=== PATIENT | female | born 1945 | race Caucasian/White ===

== ENCOUNTER 2017-10-27 11:50 | Emergency (ER) | payer OTHER ==
--- NOTE | 2017-10-27 12:00 | ED.PDOC ---
General ED Provider: Dr. CHANTELL LEONE Chief Complaint: Back Pain Stated Complaint: Onset of Rt Lower back/Flank pain yesterday upon awakening. She initially stated the pain progressively worsened from a slight twinge to being severe in nature. No associate nausea or vomiting. adds that she sits around in the house crying with back pain. Upon further questioning pain actually has been worsening for several days. Pain is especially painful when standing up and ambulatory-alleviated with rest. Admits to burning with urination. Past hx of kidney stone which was surgically treated with open ureterolithotomy. Time Seen by Physician: 11:55 Mode of Arrival: Walk-In Information Source: Patient, Family Exam Limitations: No limitations Primary Care Provider: CHANTELL CARRASCO Nursing and Triage Documentation Reviewed and Agree: Yes Reviewed sepsis parameters & appropriate labs ordered?: Yes System Inflammatory Response Syndrome: Not Applicable Sepsis Protocol: For patient's 13 years and over: Temp is 96.8 and below OR 101 and greater Pulse >90 BPM Resp >20/minute Acutely Altered Mental Status Are patient's symptoms suggestive of a new infection, such as: -Pneumonia -Skin, Soft Tissue -Endocarditis -UTI -Bone, Joint Infection -Implantable Device -Acute Abdominal Infection -Wound Infection -Meningitis -Blood Stream Catheter Infection -Unknown System Inflammatory Response Syndrome: Not Applicable Musculoskeletal Complaint Exam - Back Pain Complaint/Exam Mechanism of Injury: Reports: No known trauma Onset/Duration: 10/26/2017 upon awakening from sleep in the AM Symptoms Are: Worse Timing: Constant Episodes Lasting: Hours Initial Severity: Mild Current Severity: Moderate Location: Reports: Discrete, Radiating Character: Reports: Sharp, Aching, Throbbing, Burning Aggravating: Reports: Movements Alleviating: Reports: Rest Associated Signs and Symptoms: Reports: Weakness, Flank pain, Pain with weight bearing Related History: Reports: Similar episode TAD Risk Factors: Reports: None AAA Risk Factors: Reports: None Focal Tenderness: Yes Paraspinal Muscle Tenderness: Yes Paraspinal Muscle Spasm: Yes Scoliosis: No Lordosis: No Kyphosis: No Focal Weakness: Present: None Focal Sensory Loss: Present: None Review of Systems - Review Of Systems Constitutional: Reports: No symptoms Eyes: Reports: No symptoms Ears, Nose, Mouth, Throat: Reports: No symptoms Respiratory: Reports: No symptoms Cardiac: Reports: No symptoms GI: Reports: No symptoms : Reports: Burning, Dysuria Musculoskeletal: Reports: Back pain Skin: Reports: No symptoms Neurological: Reports: No symptoms Endocrine: Reports: No symptoms Hematologic/Lymphatic: Reports: No symptoms All Other Systems: Reviewed and Negative Past Medical History - Past Medical History Previously Healthy: Yes Endocrine: Reports: None Cardiovascular: Reports: None Respiratory: Reports: None Hematological: Reports: None Gastrointestinal: Reports: None Genitourinary: Reports: None Neuro/Psych: Reports: None Musculoskeletal: Reports: None Cancer: Reports: None - Surgical History General Surgical History: Reports: Unknown (Ureteolithotomy) - Family History Family History: Reports: None - Social History Smoking Status: Never smoker Hx Substance Use: No Physical Exam - Physical Exam Appearance: Well-appearing Ill-appearing: Moderate Pain Distress: Moderate Eyes: YOVANNY, EOMI, Conjunctiva clear ENT: Ears normal, Nose normal, Oropharynx normal Neck: Supple Respiratory: Airway patent, Breath sounds clear Cardiovascular: RRR, Pulses normal, No rub, No murmur GI/: Soft, Tender (RLQ and Rt Flank) Musculoskeletal: Normal strength, ROM intact (Reduced forward spinal flexion inhibited by degree of pain.), Limited ROM Skin: Warm Neurological: Sensation intact Psychiatric: Affect appropriate, Mood appropriate Critical Care Note - Critical Care Note Total Time (mins): 0 Course - Course Hematology/Chemistry: 10/27/17 12:25 10/27/17 12:25 Orders, Labs, Meds: Lab Review 10/27/17 10/27/17 10/27/17 12:25 12:25 12:25 WBC 6.19 RBC 4.06 L Hgb 13.3 Hct 38.8 MCV 95.6 MCH 32.8 H MCHC 34.3 RDW Coeff of [place] 14.3 Plt Count 286 Immature Gran % (Auto) 0.5 Neut % (Auto) 68.6 Lymph % (Auto) 18.7 [place] % (Auto) 10.8 H Eos % (Auto) 1.1 Baso % (Auto) 0.3 Immature Gran # (Auto) 0.0 Neut # 4.2 Lymph # 1.2 [place] # 0.7 Eos # 0.1 Baso # 0.0 Sodium 143 Potassium 3.7 Chloride 104 Carbon Dioxide 29 Anion Gap 13.7 BUN 24 H Creatinine 0.82 Estimated GFR (MDRD) 69.00 BUN/Creatinine Ratio 29.26 Glucose 100 Calcium 9.6 Total Bilirubin < 0.3 AST 37 ALT 39 Alkaline Phosphatase 89 Total Protein 7.0 Albumin 3.5 Globulin 3.5 Albumin/Globulin Ratio 1.00 Urine Color Yellow Urine Clarity Clear Urine pH 5.0 Ur Specific [place] 1.015 Urine Protein Negative Urine Glucose (UA) Negative Urine Ketones Negative Urine Blood Negative Urine Nitrite Negative Urine Bilirubin Negative Urine Urobilinogen 0.2 Ur Leukocyte Esterase Negative Orders Category Date Time Status NPO REMINDER: IMAGING ONCE CARE 10/27/17 15:07 Active CBC W/ AUTO DIFF Stat LAB 10/27/17 12:25 Completed CMP [COMPREHENSIVE METABOLIC PANEL] Stat LAB 10/27/17 12:25 Completed URINALYSIS C & S IF INDICATED Stat LAB 10/27/17 12:25 Completed Hydromorphone HCl [Dilaudid 1 mg/ml Syringe] MEDS 10/27/17 12:13 Discontinued 0.5 mg IVP ONCE STA Ondansetron HCl/Pf [Zofran 4 mg/2 ml] MEDS 10/27/17 12:11 Active 4 mg IVP Q6H PRN Sodium Chloride 0.9% [Sodium Chloride] 1,000 ml MEDS 10/27/17 12:[address] ABDOMEN/PELVIS WO CONTRAST Stat RADS 10/27/17 12:[address] LUMBAR SPINE W/CONTRAST Stat RADS 10/27/17 15:[address] THORACIC SPINE W/CONTRAST Stat RADS 10/27/17 15:03 Completed Medications Generic Name Dose Route Start Last Admin Trade Name Freq PRN Reason Stop Dose Admin Ondansetron HCl 4 mg 10/27/17 12:11 10/27/17 12:46 Zofran 4 Mg/2 Ml IVP 4 mg Q6H PRN Administration nausea and vomiting Discontinued Medications Generic Name Dose Route Start Last Admin Trade Name Freq PRN Reason Stop Dose Admin Hydromorphone HCl 0.5 mg 10/27/17 12:13 10/27/17 12:45 Dilaudid 1 Mg/Ml Syringe IVP 10/27/17 12:14 0.5 mg ONCE STA Administration Sodium Chloride 1,000 mls @ 250 mls/hr 10/27/17 12:10 Sodium Chloride IV 10/27/17 16:09 BOLUS STA Vital Signs: Temp Pulse Resp BP Pulse Ox 10/27/17 11:51 99 F 77 20 166/92 H 96 Departure - Departure Time of Disposition: 18:40 Disposition: HOME SELF-CARE Discharge Problem: Renal calculus, right, Lumbar arthropathy, Chronic low back pain without sciatica Instructions: Kidney Stones (ED), Renal Colic (ED), Flank Pain (ED), Low Back Strain (ED) Condition: Good Pt referred to PMD for follow-up: Yes (See PCP/Referra to urologist may be required) IPMP verified?: No Additional Instructions: Take meds as needed for pain unrelieved by Ibuprofen May apply Warm moist heat to the low back to reduce discomfort If pain worsens return to ER Allergies/Adverse Reactions: Allergies Sulfa (Sulfonamide Antibiotics) Adverse Reaction (Verified 10/27/17 12:03) Home Medications: Ambulatory Orders Amlodipine Besylate/Benazepril [Lotrel 5-20 mg Capsule] 0.5 tab PO DAILY Ergocalciferol (Vitamin D2) [Vitamin D2] 50,000 unit PO WEEKLY 10/27/17 Furosemide [Lasix] 20 mg PO DAILY 10/27/17 Metoprolol Succinate [Toprol Xl] 50 mg PO DAILY 10/27/17 Omeprazole [Prilosec] 20 mg PO QDAC 10/27/17 Oxycodone-Acetaminophen 5-325 [Percocet 5-325] 1 tab PO Q6H #14 tablet 10/27/17 Potassium Citrate [Potassium Citrate ER] 1,080 meq PO DAILY 10/27/17 Disposition Discussed With: Patient, Family (Explained results of testing and reviewed Imaging or Rt Kidney and stone present/If pain becomes more intense before further evaluation consider straining urine)
[2017-10-27 12:01] VITALS: BP 166/92; TEMP 99; BMI 29.7
[2017-10-27] MEDS ORDERED: SODIUM CHLORIDE 1,000 ML IV STA (12:10)
[2017-10-27] MEDS ORDERED: ZOFRAN 4 MG/2 ML IVP PRN (12:11)
[2017-10-27] MEDS ORDERED: DILAUDID 1 MG/ML SYRINGE IVP STA (12:13)
--- NOTE | 2017-10-27 13:34 | CT ---
EXAM: CT abdomen pelvis without contrast HISTORY: Abdominal and flank pain COMPARISON: CT abdomen pelvis 06/20/2013 TECHNIQUE: Serial axial images of the abdomen pelvis were performed from the lung bases through the inferior pelvis without contrast. These were viewed in multiple planes. FINDINGS: The lung bases demonstrate mild left basilar atelectasis. Evaluation is limited due to lack of contrast. The liver is unremarkable. The gallbladder has been resected. The adrenal glands are normal. There is a 0.3 cm nonobstructing right inferior pole renal stone. The left kidney demonstrates no stone, hydronephrosis or hydroureter. The spleen demonstrat es calcified granulomas. The pancreas is normal. Stomach is minimally distended. The small bowel in the abdomen pelvis is unremarkable. There is sca ttered diverticulosis without diverticulitis. Urinary bladder is distended. There has been a prior hysterectomy. There is no free air, free fluid or lymphadenopathy. There is mild atherosclerotic di sease. The osseous structures. Redemonstrate vertebraplasty and compression deformity at L4. IMPRESSION: 1. No acute intra-abdominal abnormality to account for patient's symptoms. 2. Mild diverticulosis without diverticulitis. 3. Prior hysterectomy, vertebraplasty/kyphoplasty and cholecystectomy. 4. Nonobstructing right renal stone.
--- NOTE | 2017-10-27 16:08 | CT ---
EXAM: CT of the thoracic spine with contrast History: Thoracic spine pain. Comparison: Lumbar spine CT 10/27/2017, CT abdomen pelvis 10/27/2017 Technique: Multiplanar CT images through the thoracic spine were obtained following administration o f IV contrast Findings: The visualized lungs are free of consolidation. 7 mm nodule within the superior segment of the right lower lobe. Status post cholecystectomy. Osteopenia. No acute fracture or subluxation of the thoracic spine. Prominent Schmorl's nodes seen within the superior endplate of T11. Mild multilevel degenerative disc space narrowing with a few sm all osteophytes. Bony spinal canal is not compromised. No abnormal contrast enhancement. Impression: 1. No acute osseous abnormality of the thoracic spine. 2. Mild degenerative disc disease. 3. No abnormal contrast enhancement. 4. 7 mm right lower lobe lung nodule. Recommend follow-up chest CT in 6 months.
--- NOTE | 2017-10-27 16:09 | CT ---
EXAM: CT lumbar spine with contrast HISTORY: Severe back pain. COMPARISON: CT abdomen pelvis same day and prior CT abdomen pelvis 06/20/2013 TECHNIQUE: Serial axial images of the spine were obtained after the administration of IV contrast. These were viewed in multiple planes. FINDINGS: Osseous structures demonstrate wedge compression deformity and unchanged vertebraplasty/kyp hoplasty with minimal leak of contrast anterior and posterior to the vertebral body. No additional c ompression fractures identified. There is no lytic or blastic lesion. There is mild facet arthropat hy. Soft tissues demonstrate a right renal cyst and prior cholecystectomy. There is moderate athero sclerotic disease. L1-L2: Normal L2-L3: Small broad-based disc bulge and no central or neural foraminal narrowing. L3-L4 : broad-based disc bulge and mild facet arthropathy with no central or neural foraminal narrow ing. L4-L5: There is broad-based disc bulge and facet arthropathy with mild bilateral neural foraminal na rrowing. L5-S1: Broad-based disc bulge with no central or neural foraminal narrowing. IMPRESSION: 1. No acute compression fracture, subluxation or abnormal contrast enhancement. 2. Unchanged mild compression deformity and kyphoplasty/vertebraplasty at L4. 3. Multilevel degenerative disease of the lumbar spine with mild bilateral neural foraminal narrowin g noted at L4-L5.
== END 2017-10-27 17:00 | disposition home or self-care (01) ==
LOC: ED 11:50
DX: N20.0 Calculus of kidney (principal); M54.5 Low back pain; G89.29 Other chronic pain; M47.816 Spondylosis without myelopathy or radiculopathy, lumbar region; Z87.442 Personal history of urinary calculi
CPT/HCPCS: 36415; 80053; 81001; 85025; 96374; 96375; 99283